=== PATIENT | male | born 1980 | race Hispanic/Latino ===

== ENCOUNTER 2021-03-12 10:20 | Emergency (ER) | payer OTHER, SELFPAY | END 2021-03-12 11:06 | disposition home or self-care (01) | LOC: MADERS 10:20 | DX: S39.012A Strain of muscle, fascia and tendon of lower back, initial encounter (principal); I48.91 Unspecified atrial fibrillation; I10 Essential (primary) hypertension; Z79.899 Other long term (current) drug therapy; X50.1XXA Overexertion from prolonged static or awkward postures, initial encounter | CPT/HCPCS: 99283 ==

== ENCOUNTER 2025-06-18 17:18 | Emergency (ER) | payer SELFPAY ==
[2025-06-18] MEDS ORDERED: Tetracaine 0.5% PF 4 ML BOT ONE (17:56)
[2025-06-18] MEDS ORDERED: Fluorescein Opthalmic Strip ONE (17:56)
== END 2025-06-18 18:41 | disposition home or self-care (01) ==
LOC: MADERS 17:18
DX: T15.01XA Foreign body in cornea, right eye, initial encounter (principal); E78.5 Hyperlipidemia, unspecified; I10 Essential (primary) hypertension; I48.91 Unspecified atrial fibrillation; Z79.899 Other long term (current) drug therapy; W44.8XXA Other foreign body entering into or through a natural orifice, initial encounter
CPT/HCPCS: 99283